=== PATIENT | female | born 2000 | race Caucasian/White ===

== ENCOUNTER 2023-06-26 12:06 | Emergency (ER) | payer MEDICAID ==
[~2023-06-26] VITALS: Ht 157.5 cm; Wt 48.0 kg
[2023-06-26 12:09] VITALS: O2SAT 98
[2023-06-26] MEDS: ACETAMINOPHEN 325MG TABLET PO STA (15:53)
[2023-06-26] MEDS ORDERED: METO-293 MT (16:48)
[2023-06-26 18:07] VITALS: BP 115/62; PULSE 72; RESP 16; TEMP 97.8
== END 2023-06-26 19:15 | disposition home or self-care (01) ==
LOC: ER 13:19
DX: O26.891 Other specified pregnancy related conditions, first trimester (principal); R11.2 Nausea with vomiting, unspecified; R51.9 Headache, unspecified; Z3A.08 8 weeks gestation of pregnancy
CPT/HCPCS: 76830; 76856; 81025; 99284